=== PATIENT | female | born 1995 | race Hispanic/Latino ===

== ENCOUNTER 2019-11-24 12:24 | Emergency (ER) | payer SELFPAY ==
--- NOTE | 2019-11-24 15:50 | ER ---
Nurse's Notes [facility] Name: Alaina Shah Age: 24 yrs Sex: Female : 1995 Arrival Date: 11/24/2019 Time: 12:28 Bed 13 Private MD: Diagnosis: Acute upper respiratory infection, unspecified Presentation: 11/23 12:57 Chief complaint: Patient states: has had cough, chest pain, SOB, back pain, diarrhea, iw chills, no fever, s/s started X 1 week ago worse today. Coronavirus screen: Surgical mask placed on patient. Patient moved to private room, placed in contact and droplet isolation with eye protection until further assessment. Patient reports a cough. Patient reports shortness of breath or difficulty breathing. Patient denies measured and/or subjective temperature greater than 100.4F prior to today's visit. Patient denies travel on a cruise ship or to a country the [facility] currently lists as an affected area. Patient denies contact with known and/or suspected case of COVID-19. Ebola Screen: Patient negative for fever greater than or equal to 101.5 degrees Fahrenheit, and additional compatible Ebola Virus Disease symptoms Patient denies exposure to infectious person. Patient denies travel to an Ebola-affected area in the 21 days before illness onset. No symptoms or risks identified at this time. Initial Sepsis Screen: Does the patient meet any 2 criteria? No. Patient's initial sepsis screen is negative. Does the patient have a suspected source of infection? No. Patient's initial sepsis screen is negative. Risk Assessment: Do you want to hurt yourself or someone else? Patient reports no desire to harm self or others. Onset of symptoms was November 18, 2019. 12:57 Method Of Arrival: Ambulatory iw 12:57 Acuity: DARVIN 4 iw Triage Assessment: 13:31 General: Appears in no apparent distress. comfortable, Behavior is calm, cooperative. ls4 Pain: Denies pain. Complains of pain in forehead, right restorationist and left restorationist Pain currently is 7 out of 10 on a pain scale. Quality of pain is described as dull, Pain began gradually, 2-3 days ago. Is intermittent, episodic, Also complains of. EENT: No deficits noted. No signs and/or symptoms were reported regarding the EENT system. Neuro: No deficits noted. Cardiovascular: Reports resolved chest pain, comes and goes. Capillary refill < 3 seconds Clubbing of nail beds is absent Patient's skin is warm and dry. Chest pain is denied. Respiratory: Reports shortness of breath since states that she woke up and felt shortness of breath. pt also states she is going through a divorce and has had shortness of breath, chest pains, numbness in hands and headaches since that started. cough that is non-productive, dry. GI: No deficits noted. No signs and/or symptoms were reported involving the gastrointestinal system. : No deficits noted. No signs and/or symptoms were reported regarding the genitourinary system. Derm: No deficits noted. No signs and/or symptoms reported regarding the dermatologic system. Musculoskeletal: No deficits noted. No signs and/or symptoms reported regarding the musculoskeletal system. 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 ls4 Historical: - Allergies: 13:00 No Known Allergies; iw - Home Meds: 13:00 Potassium Chloride Oral [Active]; Iron CR Oral daily [Active]; iw - PMHx: 13:00 abnormal heart rhythm; Anemia; iw - PSHx: 13:00 Cholecystectomy; iw - Immunization history:: Adult Immunizations. - Social history:: Smoking status: Patient denies any tobacco usage or history of. Screenin:39 Abuse screen: Denies threats or abuse. Denies injuries from another. Nutritional ls4 screening: No deficits noted. Tuberculosis screening: No symptoms or risk factors identified. Fall Risk None identified. Assessment: 14:15 Reassessment: Patient appears in no apparent distress at this time. Patient is alert, ls4 oriented x 3, equal unlabored respirations, skin warm/dry/pink. Patient states feeling better. 15:30 Reassessment: Patient appears in no apparent distress at this time. Patient and/or ls4 family updated on plan of care and expected duration. Pain level reassessed. Patient is alert, oriented x 3, equal unlabored respirations, skin warm/dry/pink. 15:30 Pain: Denies pain. ls4 16:06 Reassessment: Patient appears in no apparent distress at this time. Patient and/or ls4 family updated on plan of care and expected duration. Pain level reassessed. Patient states feeling better. Vital Signs: 12:57 BP 120 / 90; Pulse 102; Resp 18 S; Temp 99.0; Pulse Ox 99% on R/A; Weight 80.29 kg; iw Height 5 ft. 2 in. (157.48 cm); 12:57 Body Mass Index 32.37 (80.29 kg, 157.48 cm) iw ED Course: 12:28 Patient arrived in ED. as 12:59 Triage completed. iw 13:01 Arm band placed on. iw 13:22 Elizabeth Bangura FNP-C [facility]. snw 13:22 Osvaldo Israel MD is Attending Physician. snw 13:27 Celi Pope, RN is Primary Nurse. ls4 13:39 Patient has correct armband on for positive identification. Bed in low position. Call ls4 light in reach. Side rails up X 1. phototypesetting equipment monitor on. Pulse ox on. NIBP on. Verbal reassurance given. 13:40 No provider procedures requiring assistance completed. Patient maintains SpO2 ls4 saturation greater than 95% on room air. 15:54 Chest Single View XRAY In Process Unspecified. EDMS 16:03 Patient did not have IV access during this emergency room visit. ls4 Administered Medications: No medications were administered Outcome: 15:49 Discharge ordered by . snw 15:58 Discharged to home ambulatory, with family. ls4 15:58 Condition: stable 15:58 Discharge instructions given to patient, Instructed on discharge instructions, follow up and referral plans. Demonstrated understanding of instructions, follow-up care, medications. 16:06 Patient left the ED. ls4 Signatures: Dispatcher [employer] EDTX Elizabeth Bangura FNP-C COMMUNITY ASSISTANT-Yaneth Larsen as Sarah Nielson, RN RN iw Celi Pope, RN RN ls4
--- NOTE | 2019-11-24 15:50 | EDPHYS ---
Physician Documentation [facility] Name: Alaina Shah Age: 24 yrs Sex: Female : 1995 Arrival Date: 11/24/2019 Time: 12:28 Bed 13 Private MD: ED Physician Osvaldo Israel HPI: 11/23 16:07 This 24 yrs old Female presents to ER via Ambulatory with complaints of r/o snw covid. 16:07 Onset: The symptoms/episode began/occurred 1 week(s) ago, and became persistent. snw Associated signs and symptoms: Pertinent positives: cough, diarrhea, headache. Modifying factors: The patient symptoms are alleviated by nothing. The patient has not experienced similar symptoms in the past. The patient has not recently seen a physician. 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 ls4 Historical: - Allergies: 13:00 No Known Allergies; iw - Home Meds: 13:00 Potassium Chloride Oral [Active]; Iron CR Oral daily [Active]; iw - PMHx: 13:00 abnormal heart rhythm; Anemia; iw - PSHx: 13:00 Cholecystectomy; iw - Immunization history:: Adult Immunizations. - Social history:: Smoking status: Patient denies any tobacco usage or history of. ROS: 16:06 Eyes: Negative for injury, pain, redness, and discharge, ENT: Negative for injury, snw pain, and discharge, Neck: Negative for injury, pain, and swelling, Cardiovascular: Negative for chest pain, palpitations, and edema. 16:06 Back: Negative for injury and pain, : Negative for injury, bleeding, discharge, and swelling, MS/Extremity: Negative for injury and deformity, Skin: Negative for injury, rash, and discoloration, Neuro: Negative for headache, weakness, numbness, tingling, and seizure, Psych: Negative for depression, anxiety, suicide ideation, homicidal ideation, and hallucinations. 16:06 Constitutional: Positive for body aches, fatigue, malaise, poor PO intake. 16:06 Respiratory: Positive for cough. 16:06 Abdomen/GI: Positive for diarrhea. Exam: 16:06 Constitutional: This is a well developed, well nourished patient who is awake, alert, snw and in no acute distress. Head/Face: Normocephalic, atraumatic. Eyes: Pupils equal round and reactive to light, extra-ocular motions intact. Lids and lashes normal. Conjunctiva and sclera are non-icteric and not injected. Cornea within normal limits. Periorbital areas with no swelling, redness, or edema. ENT: Nares patent. No nasal discharge, no septal abnormalities noted. Tympanic membranes are normal and external auditory canals are clear. Oropharynx with no redness, swelling, or masses, exudates, or evidence of obstruction, uvula midline. Mucous membranes moist. Neck: Trachea midline, no thyromegaly or masses palpated, and no cervical lymphadenopathy. Supple, full range of motion without nuchal rigidity, or vertebral point tenderness. No Meningismus. Chest/axilla: Normal chest wall appearance and motion. Nontender with no deformity. No lesions are appreciated. Cardiovascular: Regular rate and rhythm with a normal S1 and S2. No gallops, murmurs, or rubs. Normal PMI, no JVD. No pulse deficits. Respiratory: Lungs have equal breath sounds bilaterally, clear to auscultation and percussion. No rales, rhonchi or wheezes noted. No increased work of breathing, no retractions or nasal flaring. Abdomen/GI: Soft, non-tender, with normal bowel sounds. No distension or tympany. No guarding or rebound. No evidence of tenderness throughout. Back: No spinal tenderness. No costovertebral tenderness. Full range of motion. Skin: Warm, dry with normal turgor. Normal color with no rashes, no lesions, and no evidence of cellulitis. MS/ Extremity: Pulses equal, no cyanosis. Neurovascular intact. Full, normal range of motion. Neuro: Awake and alert, GCS 15, oriented to person, place, time, and situation. Cranial nerves II-XII grossly intact. Motor strength 5/5 in all extremities. Sensory grossly intact. Cerebellar exam normal. Normal gait. Psych: Awake, alert, with orientation to person, place and time. Behavior, mood, and affect are within normal limits. Vital Signs: 12:57 BP 120 / 90; Pulse 102; Resp 18 S; Temp 99.0; Pulse Ox 99% on R/A; Weight 80.29 kg; iw Height 5 ft. 2 in. (157.48 cm); 12:57 Body Mass Index 32.37 (80.29 kg, 157.48 cm) iw MDM: 14:12 Patient medically screened. snw 15:51 Data reviewed: vital signs, nurses notes. Data interpreted: Pulse oximetry: on room air snw is 99 %. Interpretation: normal. Counseling: I had a detailed discussion with the patient and/or guardian regarding: the historical points, exam findings, and any diagnostic results supporting the discharge/admit diagnosis, the presence of at least one elevated blood pressure reading (>120/80) during this emergency department visit, the need for outpatient follow up, to return to the emergency department if symptoms worsen or persist or if there are any questions or concerns that arise at home. Special discussion: Based on the history and exam findings, there is no indication for further emergent testing or inpatient evaluation. I discussed with the patient/guardian the need to see the primary care provider for further evaluation of the symptoms. 11/23 14:02 Order name: COVID-19 snw 11/23 14:03 Order name: Chest Single View XRAY snw 11/23 13:28 Order name: EKG; Complete Time: 13:28 ls4 11/23 13:28 Order name: EKG - Nurse/Tech; Complete Time: 14:24 ls4 EC:30 Rate is 96 beats/min. Rhythm is regular. QRS [place] is Normal. [place] interval is normal. QRS snw interval is normal. QT interval is normal. No Q waves. T waves are Normal. Clinical impression: Normal ECG. Administered Medications: No medications were administered Disposition: 11/24/19 15:49 Discharged to Home. Impression: Acute upper respiratory infection, unspecified. - Condition is Stable. - Discharge Instructions: Upper Respiratory Infection, Adult, Viral Respiratory Infection, Cool Mist Vaporizer, Rehydration, Adult. - Prescriptions for promethazine 25 mg Oral Tablet - take 1 tablet by ORAL route every 6 hours As needed; 20 tablet. - Medication Reconciliation Form, Thank You Letter, Antibiotic Education, Prescription Opioid Use form. - Follow up: Emergency Department; When: As needed; Reason: Worsening of condition. Follow up: Private Physician; When: 1 week; Reason: Recheck today's complaints, Continuance of care, Re-evaluation by your physician. - Notes: Quarantine until results of test returns. Avoid Motrin Addendum: 11/26/2019 21:13 Co-signature as Attending Physician, Osvaldo Israel MD Did not see or evaluate patient. p s1 I was available in the ED for consultation. Signature for administrative purposes. . Signatures: Dispatcher [employer] EDMS Elizabeth Bangura, BUILDING SUPERINTENDENT-C BUILDING SUPERINTENDENT-Csnw Sarah Nielson, RN RN iw Osvaldo Israel MD MD ps1 Celi Pope RN RN ls4 Corrections: (The following items were deleted from the chart) 11/23 16:06 15:49 11/24/2019 15:49 Discharged to Home. Impression: Acute upper respiratory ls4 infection, unspecified. Condition is Stable. Forms are Medication Reconciliation Form, Thank You Letter, Antibiotic Education, Prescription Opioid Use. Follow up: Emergency Department; When: As needed; Reason: Worsening of condition. Follow up: Private Physician; When: 1 week; Reason: Recheck today's complaints, Continuance of care, Re-evaluation by your physician. snw
[2019-11-24 16:30] VITALS: BP 120/90; TEMP 99; O2SAT 99
--- NOTE | 2019-11-24 21:53 | RAD REPORT ---
EXAM DESCRIPTION: Molly Single View11/24/2019 9:08 pm CLINICAL HISTORY: cough COMPARISON: none FINDINGS: The lungs appear clear of acute infiltrate. The heart is normal size IMPRESSION: No acute abnormalities displayed
--- NOTE | 2019-11-25 07:19 | EKG ---
Test Date: 2019-11-24 Test Time: 14:14:10 Office Services Associate: RIVKA MEASUREMENT RESULTS: Intervals: Rate: 96 HI: 154 QRSD: 86 QT: 340 QTc: 429 [place]: P: 11 HI: 154 QRS: 40 T: 36 INTERPRETIVE STATEMENTS: Normal sinus rhythm Normal ECG No previous ECG available for comparison Electronically Signed On 11-25-19 07:18:07 CDT by Gurvinder Glover
== END 2019-11-24 16:06 | disposition home or self-care (01) ==
LOC: ER 12:24
DX: U07.1 COVID-19 (principal); J06.9 Acute upper respiratory infection, unspecified
CPT/HCPCS: 71045; 93005; 99284; U0001

== ENCOUNTER 2020-12-23 08:59 | Day surgery (SDC) | payer SELFPAY ==
[2020-12-22 13:42] LABS: Absolute Lymphocytes (CBC) 2.3 K/uL (0.7-4.9); Basophils % 1.3 % (0-1.3); Hematocrit 37.1 % (36.0-45.0); Lymphocytes % 27.8 % (15.3-44.8); MPV 8.6 fL (7.6-11.3); RBC Red Blood Cell Count 4.19 M/uL (3.86-4.86)
[2020-12-23] MEDS ORDERED: CEFAZOLIN/SWI 1gm 1 GM/10 ML SYR ONE (09:33)
[2020-12-23] MEDS ORDERED: Ringers Lactate 1,000 ML IV ONE (09:33)
[2020-12-23] MEDS ORDERED: BUPIVACAINE 0.5% PF 10 ML VIAL ONE (10:12)
[2020-12-23] MEDS ORDERED: FENTANYL CITR 100 MCG/2 ML ONE (10:31)
[2020-12-23] MEDS ORDERED: propofoL 200 MG/20 ML VIAL IV ONE (10:31)
[2020-12-23] MEDS ORDERED: MIDAZOLAM HCL 2 MG/2 ML INJ ONE (10:32)
[2020-12-23] MEDS ORDERED: LIDOCAINE 2% MPF 5 ML VIAL ONE (10:34)
[2020-12-23] MEDS ORDERED: ONDANSETRON 4 MG/2 ML VIAL ONE (10:34)
[2020-12-23] MEDS ORDERED: dexAMETHasone 10 MG/ML VIAL ONE (10:46)
[2020-12-23] MEDS ORDERED: Mastisol Adhesive Liq ONE (11:04)
[2020-12-23] MEDS ORDERED: KETOROLAC 30 MG/ML INJ ONE (11:04)
--- NOTE | 2020-12-23 11:24 | OP ---
Date of Procedure: 12/23/2020 Surgeon: Ankit Finney MD Fertilizing Machine Operator: Deric Kahn, surgical coordinator, certified Preoperative Diagnosis: Left breast mass. Postoperative Diagnosis: Left breast mass. Procedure Performed: Excision left breast mass. Estimated Blood Loss: Minimal. Specimen: Left breast mass. Finding: As above. Anesthesia: General. Complications: None. Disposition: The patient tolerated the procedure in stable condition and taken to recovery in good g eneral condition. Procedure In Detail: The patient was brought to the OR and placed in supine position. General anest hesia was begun. The patient was prepped and draped in usual sterile fashion. Marcaine 0.5% was inf iltrated locally. A 15-blade was used to make a 3 cm incision at the 12 o'clock position in the left breast about 2 cm above the nipple-areolar complex. Subcutaneous tissue was divided and mass was pa lpated. It was approximately 2 cm in diameter, excised and sent to pathology as specimen. Wound was irrigated. Bleeding was controlled with cautery. A 3-0 chromic and 4-0 Monocryl were used to close the subcutaneous tissue as well as the skin. Sterile dressing was applied. The patient was awakened and taken to recovery in good general condition. Discharge Note: The patient will go to Day Surgery and home when stable. Disposition: Home. Condition: Stable. Discharge Instructions: Resume home meds and diet. Activity as tolerated. No heavy lifting. Keep dressing clean and dry. Sponge bathe only. Tylenol No.3 one tablet p.o. q.4 p.r.n. pain. Follow up in my office in 1 week. Call for appointment. /MODL Voice ID: [id number] Report ID: [id number]
[2020-12-23] MEDS ORDERED: CODEINE 30MG/APAP 300MG TAB ONE (12:20)
[2020-12-23 13:03] VITALS: BP 109/58; TEMP 97.1
[2020-12-23 13:07] VITALS: O2SAT 99
[2020-12-23] MEDS ORDERED: ACETAMINOPHEN 325 MG TABLET ONE (14:46)
== END 2020-12-23 12:47 | disposition home or self-care (01) ==
LOC: OR 08:59
PROVIDERS: ATTEND Surgery
PROC: 0HBU0ZZ Excision of Left Breast, Open Approach (ICD-10-PCS; principal; 2020-12-23 10:15)
DX: N61.22 Granulomatous mastitis, left breast (principal); Z20.822 Contact with and (suspected) exposure to COVID-19
CPT/HCPCS: 36415; 81025; 85025; 88305; 88312; J0690; J1100; J2250; J2405; J2704; J3010; J7120; U0003